=== PATIENT | female | born 1955 | race Caucasian/White ===

== ENCOUNTER 2020-06-30 17:23 | Inpatient (IN) | payer MEDICARE, OTHER ==
[~2020-06-30] VITALS: Ht 167.6 cm; Wt 116.6 kg
--- NOTE | 2020-06-30 17:33 | NUR ---
Placed a call to dietary for pt's dinner.
--- NOTE | 2020-06-30 17:43 | NUR ---
Pt c/o pain on Lt wrist at the suture site, ordered med and given.
[2020-06-30] MEDS ORDERED: ACETAMINOPHEN 325 MG TABLET ONE (17:44)
[2020-06-30] MEDS ORDERED: ACETAMINOPHEN 325 MG TABLET PO ONE (17:45)
[2020-06-30 18:06] LABS: *BILIRUBIN,URIN NEGATIVE (NEGATIVE); *BLOOD, URINE NEGATIVE (NEGATIVE); *CLARITY,URINE SLIGHTLY CLOUDY (CLEAR); *COLOR,URINE YELLOW (YELLOW); *KETONES,URINE NEGATIVE (NEGATIVE); *UROBILINOGEN,URINE 0.2 E.U./dl (NORMAL); LEUKOCYTE ESTERASE ,URINE NEGATIVE (NEGATIVE); NITRITE, URINE POSITIVE (NEGATIVE); PH,URINE 5.5 (5.0-8.0); UGLUCOSE TRACE (NEGATIVE)
[2020-06-30] MEDS ORDERED: DIAZ2TAB PO (18:21)
[2020-06-30] MEDS ORDERED: HUMALOG SQ (18:21)
[2020-06-30] MEDS ORDERED: INSU3INS6 SQ (18:21)
[2020-06-30] MEDS ORDERED: LORAZEPAM 0.5 MG TABLET PO PRN (19:00)
[2020-06-30] MEDS ORDERED: MAG HYDROX/AL HYDROX/SIMETH 30 ML LIQUID UDC PO PRN (19:00)
[2020-06-30] MEDS ORDERED: MAGNESIUM HYDROXIDE 30 ML LIQUID UDC PO PRN (19:00)
[2020-06-30] MEDS ORDERED: ACETAMINOPHEN 325 MG TABLET PO PRN (19:00)
[2020-06-30 20:16] VITALS: BP 127/53
[2020-06-30] MEDS ORDERED: HYDROCODONE/APAP 5-325MG TABLET PO PRN (20:30)
[2020-06-30 21:01] LABS: BACTERIA,URINE MANY /HPF (NONE SEEN); RBC,URINE 0-3 /HPF (0-3); SQUAMOUS EPITHELIAL CELL,UR FEW /HPF (NONE SEEN)
[2020-06-30] MEDS: TEMAZEPAM 7.5 MG CAPSULE PO PRN (22:04)
[2020-07-01 07:30] VITALS: BP 109/54
--- NOTE | 2020-07-01 11:32 | NUR ---
TRISHA Initial Discharge Plan: Patient currently resides at home [address] [place] [address] ([phone]) lives with friend/roommate, Olivia ([phone]). Patient would like to return home upon discharge. Olivia stated she will pick pulling machine operator the patient and take her home. TRISHA will continue to work with patient, family, and MD to ensure a safe and proper discharge plan.
--- NOTE | 2020-07-01 11:33 | NUR ---
TRISHA Family Contact: TRISHA spoke with friend/roommate, Olivia ([phone]) and discussed treatment and discharge plan. Olivia stated that she will berry picker the patient upon discharge and take her back home.
--- NOTE | 2020-07-01 11:36 | NUR ---
Firearms Report: Pad Tufter completed and submitted a DOJ firearms report for 5150 danger to self certifications. A copy of report has been placed in patient chart.
--- NOTE | 2020-07-01 11:55 | NUR ---
[employer]SP Biological Sciences Professor: SW called and left a voicemail for patient's case advocate, Elvira ([phone]) to collect collateral regarding patients' therapist and psychiatrist.
--- NOTE | 2020-07-01 11:56 | NUR ---
Brief Substance Abuse Intervention: Patient was provided with a brief substance abuse intervention for prescription medication overdose and [place] [facility] ([phone]) [facility] (501-585-1290) National Suicide Prevention Lifeline (414-246-7639) [facility] (055-616-8552) [facility] (588-656-7780) [facility] National Helpline (647-677-2601).
--- NOTE | 2020-07-01 14:29 | NUR ---
FSP Frit Maker: SW spoke with patient's FSP Frit Maker, Elvira ([phone]) and discussed discharge planning.
[2020-07-01 16:00] VITALS: BP 103/49
[2020-07-01] MEDS: CEphaleXIN 250 MG CAPSULE PO SCH ×2 (17:42→23:00)
[2020-07-01] MEDS: ATORVASTATIN 40 MG TABLET PO SCH (20:04)
[2020-07-01] MEDS: INSULIN GLARGINE,HUM 300 UNITS/3 ML CARTRIDGE SQ SCH (20:27)
[2020-07-01 20:41] VITALS: BP 138/75
[2020-07-02] MEDS: CEphaleXIN 250 MG CAPSULE PO SCH ×3 (06:18→22:19)
[2020-07-02 07:30] VITALS: BP 103/57
[2020-07-02] MEDS ORDERED: DEXTROSE 50% 50 ML DISP.SYRIN IV PRN (08:45)
[2020-07-02] MEDS: ESCITALOPRAM OXALATE 10 MG TABLET PO SCH (10:40)
--- NOTE | 2020-07-02 11:19 | NUR ---
WOUND CARE CONSULT: PT PRESENTS WITH LEFT WRIST SUTURED LACERATION, PRESENT ON ADMISSION. NO DRAINAGE NOTED. RECOMMENDATIONS MADE FOR SKIN PROTECTION. DISCUSSED WITH NURSING STAFF. MD IN AGREEMENT WITH PLAN OF CARE.
[2020-07-02] MEDS: BLOOD SUGAR DIAGNOSTIC 1 EACH STRIP VI SCH ×3 (12:00→20:39)
[2020-07-02] MEDS: INSULIN REGULAR, HUMAN 300 UNIT/3 ML VIAL SQ PRN ×2 (12:09→17:23)
--- NOTE | 2020-07-02 14:23 | NUR ---
Therapist Contact: SW spoke with patients therapist, Nicholas Navarro ([phone]) from [facility] who stated to get in touch with him upon patient's discharge to set up an appointment.
[2020-07-02 16:00] VITALS: BP 141/78
[2020-07-02] MEDS: ATORVASTATIN 40 MG TABLET PO SCH (20:32)
[2020-07-02] MEDS: INSULIN GLARGINE,HUM 300 UNITS/3 ML CARTRIDGE SQ SCH (20:38)
[2020-07-02] MEDS: INSULIN REGULAR, HUMAN 300 UNITS/3 ML VIAL SQ PRN (20:40)
[2020-07-02] MEDS: TEMAZEPAM 7.5 MG CAPSULE PO PRN (21:08)
[2020-07-02 21:13] VITALS: BP 124/54
--- NOTE | 2020-07-02 22:10 | NUR ---
Patient is alert and verbally responsive. Afebrile. No complaints of pain. Patient is ambulatory. In no respiratory distress. Patient received due medications, including patient's request for restoril. Provided dim and quiet environment. Observed with effect. Patient is sleeping soundly, with CPAP machine on. Will continue to monitor patient and anticipate needs.
[2020-07-03] MEDS: CEphaleXIN 250 MG CAPSULE PO SCH ×3 (06:31→22:37)
[2020-07-03] MEDS: BLOOD SUGAR DIAGNOSTIC 1 EACH STRIP VI SCH ×4 (06:37→20:44)
[2020-07-03 07:30] VITALS: BP 107/49
[2020-07-03] MEDS: INSULIN REGULAR, HUMAN 300 UNIT/3 ML VIAL SQ PRN ×3 (08:37→17:19)
[2020-07-03] MEDS: ESCITALOPRAM OXALATE 10 MG TABLET PO SCH (09:11)
[2020-07-03 16:00] VITALS: BP 146/69
[2020-07-03 20:23] VITALS: BP 141/80
[2020-07-03] MEDS: ATORVASTATIN 40 MG TABLET PO SCH (20:45)
[2020-07-03] MEDS: INSULIN GLARGINE,HUM 300 UNITS/3 ML CARTRIDGE SQ SCH (20:45)
[2020-07-03] MEDS: INSULIN REGULAR, HUMAN 300 UNITS/3 ML VIAL SQ PRN (20:47)
[2020-07-04] MEDS: CEphaleXIN 250 MG CAPSULE PO SCH ×3 (06:14→22:09)
[2020-07-04] MEDS: BLOOD SUGAR DIAGNOSTIC 1 EACH STRIP VI SCH ×4 (06:24→20:08)
[2020-07-04] MEDS: INSULIN REGULAR, HUMAN 300 UNIT/3 ML VIAL SQ PRN ×3 (07:29→16:43)
[2020-07-04 07:30] VITALS: BP 112/67
[2020-07-04 08:10] LABS: BASOPHILS # (AUTO) 0.1 K/uL (0.0-8.0); BASOPHILS % (AUTO) 0.9 % (0.0-2.0); EOSINOPHILS # (AUTO) 0.1 K/uL (0.0-0.7); EOSINOPHILS % (AUTO) 1.6 % (0.0-7.0); HEMATOCRIT 37.7 % (31.2-41.9); HEMOGLOBIN 12.4 g/dL (10.9-14.3); LYMPHOCYTES # (AUTO) 1.7 K/uL (20.0-40.0); LYMPHOCYTES % (AUTO) 23.1 % (20.5-51.5); MEAN CORPUSCULAR HEMOGLOBIN 28.3 uug (24.7-32.8); MEAN CORPUSCULAR HGB CONC 33 g/dL (32.3-35.6); MONOCYTES # (AUTO) 0.6 K/uL (2.0-10.0); MONOCYTES % (AUTO) 7.5 % (0.0-11.0); NEUTROPHILS # (AUTO) 4.9 K/uL (1.8-8.9); NEUTROPHILS % (AUTO) 66.9 % (38.5-71.5); PLATELET COUNT (AUTO) 239 K/uL (179-408); RED BLOOD CELL COUNT(AUTO) 4.39 MIL/uL (3.63-4.92); WHITE BLOOD COUNT (AUTO) 7.4 K/uL (3.8-11.8)
[2020-07-04] MEDS: ESCITALOPRAM OXALATE 10 MG TABLET PO SCH (08:13)
[2020-07-04 09:05] LABS: PHOSPHOROUS 4.4 mg/dL (2.5-4.9)
--- NOTE | 2020-07-04 10:59 | NUR ---
TRISHA PC Hearing: Patient had 5250 probable cause hearing today and it was upheld for grave disability and danger to self.
--- NOTE | 2020-07-04 13:26 | NUR ---
TRISHA Family Contact: TRISHA left message for friend/roommate, Olivia ([phone]) to inform of tentative discharge for Tuesday and to discuss pickle water pump operator time. Addendum: 07/04/20 at 1353 by LEO MUNOZ Spoke with Olivia and stated [facility] may be able to provide transportation. She is agreeable and will come if they cannot.
--- NOTE | 2020-07-04 13:53 | NUR ---
[facility]: TRISHA spoke with Darrion from [facility] ([phone]) and he will be arranging transportation for the patient for Tuesday back home. Will call me back to confirm time.
--- NOTE | 2020-07-04 14:07 | NUR ---
TRISHA Coordination of Care: TRISHA contacted patient's primary care physician Dr. Pickett, [address] [place] [address] ([phone]) and the audience coordinator will be following up with the patient post discharge to schedule the appointment, spoke with Nae. TRISHA contacted patient's psychiatrist Dr. Je Conner ([phone]) from [facility] to schedule an appointment, left message for follow up. TRISHA left a message for patients therapist, Nicholas Navarro ([phone]) from [facility] informing of patient's discharge plan Tuesday. TRISHA left a message for patients Algorithm Developer, Elvira ([phone]) from [facility] informing of patient's discharge plan Tuesday. Addendum: 07/04/20 at 1413 by LEO MUNOZ Patients therapist, Nicholas Navarro ([phone]) from [facility] is aware of the patients discharge plan and will be following up with the patient upon her arrival home in the evening on Tuesday July 07, 2020.
[2020-07-04 15:08] VITALS: BP 110/52
--- NOTE | 2020-07-04 15:47 | NUR ---
PATIENT REQUESTED TO FILE A WRIT , ASSISTED WITH HER REQUESTED , FAXED WRIT TO THE COURT, WRIT COPY ON FILE, MADE AWARE
--- NOTE | 2020-07-04 17:18 | NUR ---
RECEIVED PATIENT AOX3-4, NOTED THE SCAR ON LEFT WRIST LACERATION, PATIENT DENIES SI AND HI, HOWEVER, SEEN CRYING IN HER ROOM VERBALIZES THAT SHE WANTED TO GO HOME , RE ASSURE PATIENT AND PATIENT ABLE TO CALM DOWN , PATIENT SEEN READING BOOKS IN ROOM, PATIENT ASSISTED WITH HER ADLS, PROVIDED READING GLASSES , PATIENT DENIES SI AND HI, COMPLIANT WITH MEDICATION , ON MONITORING [id number] FOR SAFETY NO SIGN OF DISTRESS AT THIS TIME
[2020-07-04] MEDS: ATORVASTATIN 40 MG TABLET PO SCH (20:05)
[2020-07-04] MEDS: INSULIN GLARGINE,HUM 300 UNITS/3 ML CARTRIDGE SQ SCH (20:05)
[2020-07-04] MEDS: INSULIN REGULAR, HUMAN 300 UNITS/3 ML VIAL SQ PRN (20:07)
[2020-07-04 20:19] VITALS: BP 118/47
[2020-07-04] MEDS: TEMAZEPAM 7.5 MG CAPSULE PO PRN (21:44)
--- NOTE | 2020-07-05 06:06 | NUR ---
Pt slept a total of 7.45H last night. Pt had a CPAP throughout the night as well as a sitter at bedside. Pt denies pain or SOB. Denies SI or HI. Pt was pleasant and able to follow commands. Safety precautions stayed in place throughout the shift. Was given Restoril at around 2200H, tolerated medication well. No other issues or concerns at this time, will endorse to day shift.
[2020-07-05] MEDS: CEphaleXIN 250 MG CAPSULE PO SCH ×3 (06:14→21:18)
[2020-07-05] MEDS: BLOOD SUGAR DIAGNOSTIC 1 EACH STRIP VI SCH ×4 (06:24→20:26)
[2020-07-05 07:30] VITALS: BP 108/50
[2020-07-05] MEDS: ESCITALOPRAM OXALATE 10 MG TABLET PO SCH (08:35)
[2020-07-05] MEDS: INSULIN REGULAR, HUMAN 300 UNIT/3 ML VIAL SQ PRN ×2 (11:25→16:21)
[2020-07-05 16:00] VITALS: BP 110/47
[2020-07-05 20:00] VITALS: BP 127/75
[2020-07-05] MEDS: ATORVASTATIN 40 MG TABLET PO SCH (20:24)
[2020-07-05] MEDS: INSULIN GLARGINE,HUM 300 UNITS/3 ML CARTRIDGE SQ SCH (20:26)
[2020-07-05] MEDS: TEMAZEPAM 7.5 MG CAPSULE PO PRN (21:18)
[2020-07-06] MEDS: BLOOD SUGAR DIAGNOSTIC 1 EACH STRIP VI SCH ×4 (05:43→20:23)
[2020-07-06] MEDS: CEphaleXIN 250 MG CAPSULE PO SCH ×3 (05:44→21:44)
--- NOTE | 2020-07-06 06:30 | NUR ---
Patient slept 7.30 hours last night , after receiving a sleeping medication. Patient used her CPAP from home and had a 1:1 sitter at the bedside for safety. Motorboat Mechanic Inboard/Outboard was able to engage in meaningful conversation with the patient, were as the patient denied SI and feels she is ready to be discharged home on Tuesday.
[2020-07-06 07:30] VITALS: BP 112/65
[2020-07-06] MEDS: ESCITALOPRAM OXALATE 10 MG TABLET PO SCH (08:01)
[2020-07-06] MEDS: INSULIN REGULAR, HUMAN 300 UNIT/3 ML VIAL SQ PRN ×2 (11:23→16:26)
[2020-07-06 16:00] VITALS: BP 124/46
[2020-07-06 20:13] VITALS: BP 136/65
[2020-07-06] MEDS: ATORVASTATIN 40 MG TABLET PO SCH (20:22)
[2020-07-06] MEDS: INSULIN GLARGINE,HUM 300 UNITS/3 ML CARTRIDGE SQ SCH (20:24)
[2020-07-06] MEDS: INSULIN REGULAR, HUMAN 300 UNITS/3 ML VIAL SQ PRN (20:27)
[2020-07-06] MEDS: TEMAZEPAM 7.5 MG CAPSULE PO PRN (21:44)
[2020-07-07] MEDS: BLOOD SUGAR DIAGNOSTIC 1 EACH STRIP VI SCH ×2 (06:24→11:40)
[2020-07-07] MEDS: CEphaleXIN 250 MG CAPSULE PO SCH (06:24)
--- NOTE | 2020-07-07 06:25 | NUR ---
No changes with this patient from the previous night. Patient is scheduled to be discharged and expressed being happy about that. Total sleep was 6.00 hours. Patient denies SI , but continues to be monitored for safety.
[2020-07-07 07:30] VITALS: BP 109/69
[2020-07-07] MEDS: ESCITALOPRAM OXALATE 10 MG TABLET PO SCH (08:31)
[2020-07-07] MEDS: INSULIN REGULAR, HUMAN 300 UNIT/3 ML VIAL SQ PRN ×2 (08:32→12:18)
--- NOTE | 2020-07-07 08:37 | NUR ---
Discharge Note: Patient will be discharged home [address] [place] [address] ([phone]) lives with friend/roommate, Olivia ([phone]). [facility] will be providing transportation for the patient today at 12:15-12:45pm Sulfur Chloride Operator Jay from [employer] (spoke with Darrion [phone]). Patient is alert and oriented x4 and is aware and agreeable with discharge plan. Patient presents with euthymic mood and congruent affect. Patient denies suicidal or homicidal ideation. Patient will be following up with her primary care physician Rigoberto Mcdonald [address] [place] [address] ([phone]) and the rn mds coordinator will be following up with the patient post discharge to schedule the appointment, spoke with Nae. Patient will be following up with her psychiatrist Dr. Je Conner ([phone]) from [facility] and has an appointment scheduled on Tuesday07/08/20. Patients therapist, Nicholas Navarro ([phone]) from [facility] is aware of the patients discharge plan and will be following up with the patient upon her arrival home in the evening on Tuesday July 07, 2020. Patients Software Configuration Specialist, Elvira ([phone]) from [facility] is aware and agreeable with discharge plan. Patient was provided with a brief substance abuse intervention for prescription medication overdose and referred to [facility] (612-999-7908) [facility] (021-504-4683) National Suicide Prevention Lifeline (843-834-8970) [facility] (437-103-2263) [facility] ([phone]) [facility] National Helpline (032-290-4653).
--- NOTE | 2020-07-07 09:44 | NUR ---
called in for discharge RX for Dr. Strauss @[phone] [facility].
--- NOTE | 2020-07-07 12:48 | NUR ---
DISCHARGE NOTE: Patient discharged off the unit in stable condition accompanied by nursing staff. Patient being picked up by private transportation company to be driven back home to her [address] at [address], [place] [address] ([phone]). Patient's valuables and belongings inventoried and returned to patient. Patient's CPaP machine returned. Patient is provided with discharge instructions and provided with education about discharge prescriptions, instructions, and follow up care with psychiatrist and primary care physician. Patient is able to verbalize understanding of education. Patient denies suicidal and homicidal ideation.
== END 2020-07-07 12:30 | disposition home or self-care (01) | DRG 885 ==
LOC: ER 17:23 → GPS 18:29
PROVIDERS: ADMIT Psychiatry & Neurology Psychiatry; ATTEND Internal Medicine
DX: F33.2 Major depressive disorder, recurrent severe without psychotic features (principal); E11.65 Type 2 diabetes mellitus with hyperglycemia; N39.0 Urinary tract infection, site not specified; Z68.41 Body mass index [BMI] 40.0-44.9, adult; E44.1 Mild protein-calorie malnutrition; T42.4X2D Poisoning by benzodiazepines, intentional self-harm, subsequent encounter; S61.512D Laceration without foreign body of left wrist, subsequent encounter; X78.9XXD Intentional self-harm by unspecified sharp object, subsequent encounter; E66.01 Morbid (severe) obesity due to excess calories; E78.5 Hyperlipidemia, unspecified; Z79.4 Long term (current) use of insulin
CPT/HCPCS: 36415; 83735; 84100; 85025; 87086; A4663; J1815